=== PATIENT | male | born 1990 ===

== ENCOUNTER 2022-12-25 08:34 | Outpatient (RCR) | payer OTHER, SELFPAY ==
--- NOTE | 2022-12-25 08:30 | HOLTER_ITS ---
APPROVED REPORT Conclusion Is a 24-hour Holter monitor ordered for palpitations Rhythm throughout was sinus with an average heart rate of 80. Minimum was 63, maximum 135 There was an isolated premature ventricular contraction There was no atrial fibrillation, no SVT, no high-grade AV block, no pauses greater than 3 seconds Patient symptoms corresponded to sinus rhythm and sinus tachycardia
== END 2023-01-14 23:59 | disposition home or self-care (01) ==
LOC: CARDOPNVT 08:34
PROVIDERS: PCP Family Medicine; Visit Provider Family Medicine
DX: R00.2 Palpitations (principal); F15.90 Other stimulant use, unspecified, uncomplicated; I49.8 Other specified cardiac arrhythmias
CPT/HCPCS: 93225; 93226

== ENCOUNTER 2023-01-22 10:34 | Outpatient (CLI) | payer OTHER, SELFPAY ==
--- NOTE | 2023-01-22 10:30 | RT.EKG_ITS ---
APPROVED REPORT Exam: Resting ECG Reason for Exam: Subjective palpitations Patient Location: O HR:78 bpm ECG Measurements Heart Rate 78 AXIS AK 114 P -7 QRSd 84 QRS 42 QT 352 T 31 QTc 401 Conclusion Sinus rhythm...normal P axis, V-rate 50- 99 Borderline short AK interval...AK int <120mS Otherwise normal ECG
== END 2023-01-22 10:35 | disposition home or self-care (01) ==
LOC: DI.KIM 10:35
PROVIDERS: PCP Family Medicine; Visit Provider Family Medicine
DX: R00.2 Palpitations (principal)
CPT/HCPCS: 93010